=== PATIENT | male | born 1980 | race African-American/Black ===

== ENCOUNTER 2025-03-27 13:03 | Emergency (ER) | payer MEDICAID ==
[~2025-03-27] VITALS: Ht 177.8 cm; Wt 100.0 kg
[~2025-03-27 13:03] MED LIST: COR25 MT; EMPA25TA MT; FURO-151 PO; NITR-87 MT; SACU1TAB4 MT; SPIR1TAB4 PO
[2025-03-27 13:13] VITALS: BP 138/98; O2SAT 100
[2025-03-27 13:19] VITALS: PULSE 109; RESP 20; O2SAT 99
[2025-03-27 14:24] LABS: CLARITY URINE CLOUDY (CLEAR); COLOR URINE ORANGE (YELLOW); GLUCOSE URINE 3+ (NEGATIVE); KETONES URINE NEGATIVE (NEGATIVE); LEUKOCYTE ESTERASE URINE 1+ (NEGATIVE); NITRITE URINE NEGATIVE (NEGATIVE); OCCULT BLOOD URINE 3+ (NEGATIVE); PH URINE 5.0 (4.5-8.0); PROTEIN URINE 2+ (NEGATIVE); SPECIFIC GRAVITY URINE 1.027 (1.005-1.030); UROBILINOGEN URINE 0.2 E.U./dL (0.2-1.0)
[2025-03-27 14:40] LABS: BACTERIA URINE NONE SEEN; RBC URINE TNTC /hpf (0-2); SQUAMOUS EPITHELIAL CELL URINE RARE /lpf (RARE/1+); YEAST URINE NONE SEEN
[2025-03-27 15:03] LABS: PLATELET 264 x1000/uL (130-400); RED BLOOD CELL COUNT 5.28 mill/uL (4.7-6.1); RED CELL DISTRIBUTION WIDTH 13.9 % (11.6-14.6)
[2025-03-27] MEDS ORDERED: CEFP200T13 MT (15:39)
== END 2025-03-27 16:03 | disposition home or self-care (01) ==
LOC: ER 13:04
DX: N13.9 Obstructive and reflux uropathy, unspecified (principal); N39.0 Urinary tract infection, site not specified; R31.9 Hematuria, unspecified; I11.0 Hypertensive heart disease with heart failure; I50.9 Heart failure, unspecified; Z79.84 Long term (current) use of oral hypoglycemic drugs; Z79.899 Other long term (current) drug therapy
CPT/HCPCS: 36415; 81003; 85027; 99283